=== PATIENT | female | born 1980 | race Caucasian/White ===

== ENCOUNTER 2016-11-20 07:27 | Day surgery (SDC) | payer BC ==
--- NOTE | 2016-11-12 16:38 | HP ---
PREOPERATIVE HISTORY AND PHYSICAL: DATE OF SURGERY/ADMISSION: 11/20/16 [facility] DATE OF OFFICE VISIT/ENCOUNTER: 11/12/16 ATTENDING SURGEON: Ernestina Camargo MD PROCEDURE: Left carpal tunnel release. CHIEF COMPLAINT: Numbness and tingling, left hand. 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 She complains of numbness in the left hand and pain. She rates the pain as 8/10, it has been very bothersome in the last few days. It wakes her up from sleep despite using a brace and trying to keep her wrist straight. She denies any injury to this wrist. She has not had any other treatment. She uses ibuprofen and/or meloxicam on an as needed basis and also recently was prescribed some hydrocodone for the pain by MARCELLA Soria. The patient denies neck pain. The pain does radiate up to her elbow at times, but her small finger does not go numb. She complains of weakness in her hand. She has consented to proceed with surgical intervention at this time after evaluation by Dr. Camargo. The patient is left-hand dominant. PAST MEDICAL HISTORY: 1. History of anemia. 2. Back pain. PAST SURGICAL HISTORY: 1. x2. 2. Right knee arthroscopy. CURRENT MEDICATIONS: 1. Cyclobenzaprine HCl p.r.n. back spasms. 2. Ibuprofen p.r.n. 3. Meloxicam p.r.n. ALLERGIES: No known drug allergies. FAMILY MEDICAL HISTORY: Noncontributory. 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 She is a smoker. She reports smoking approximately 5 cigarettes a day, first onset for the past 15 years. She denies recreational drug use and alcohol use. REVIEW OF SYSTEMS: General: Negative for fevers, chills, or night sweats. No known anesthesia problems. HEENT: Negative for headache, lightheadedness, or syncopal episodes. Integumentary: Negative for abrasions, lesions, or open wounds. Cardiothoracic: Negative for chest pain, palpitations, or edema. Negative for hypertension. Pulmonary: Negative for shortness of breath with exertion, chronic cough, or COPD. GI: Negative for nausea, vomiting, diarrhea , or constipation. No GERD. : Negative for nocturia, urinary frequency, urgency, history of UTIs, or kidney problems. Musculoskeletal: Positive for intermittent back pain and current complaint, otherwise negative. Neurological : Negative for history of seizure, stroke, or epilepsy. Endocrine: Negative for diabetes or thyroid issues. Hematological: Positive for history of anemia. Negative for easy bruising, excessive bleeding, or history of DVT. Infectious Disease: Negative for history of MRSA, hepatitis C, or HIV. PHYSICAL EXAMINATION GENERAL: A well-developed, well-nourished 35-year-old female, in no acute distress. VITALS SIGNS: Height 5 feet tall, weight 159 pounds, pulse rate 64, and blood pressure 122/78. HEENT: Normocephalic, atraumatic. Pupils are equal, round, and reactive to light and accommodation. Extraocular movements are intact. NECK: Supple. No palpable lymph nodes. Throat is clear. PULMONARY: Lungs are clear to auscultation bilaterally. No wheezes, rales, or rhonchi. CARDIOTHORACIC: Regular rate and rhythm. S1 and S2. No murmurs, rubs, or gallops. No edema. ABDOMEN: Positive bowel sounds, soft, and nontender. MUSCULOSKELETAL: On exam of the left upper extremity, her left hand shows a positive Tinel sign at the median nerve of the wrist. There is a positive median nerve compression test as well. No thenar wasting. Mild weakness with thumb abduction. No weakness with finger abduction. She has full flexion and extension of the fingers and normal motion at the wrist. Skin is intact. She has decreased sensation at the tips of the fingers of the median nerve distribution, but normal sensation to light touch in the small finger. NEUROLOGICAL: Alert and oriented x3. Cranial nerves II through XII are intact. Sensation is intact to light touch. ASSESSMENT: Left carpal tunnel syndrome. PLAN/RECOMMENDATIONS: The patient is scheduled to undergo a left carpal tunnel release with Dr. Camargo on 11/20/16. She will return to the office in 10 to 14 days postop for followup and suture removal. A prescription for Ultracet was e-scribed to the patient's pharmacy [place] [id number]/[facility] #: [id number] [address] HOSPITAL[facility]
[~2016-11-20 07:27] MED LIST: Buffered Lidocaine 1% SYR 3ML* 3 ML/SYR SYRINGE INTRADERM ONE
[2016-11-20] MEDS ORDERED: Lidocaine 1% INJ* 10 MG/ML 30 ML SDV ONE (07:57)
[2016-11-20] MEDS ORDERED: fentaNYL* 50 MCG/ML 2 ML VIAL (100 MCG VIAL) ONE (08:39)
[2016-11-20] MEDS ORDERED: Propofol* 10 MG/ML 20 ML BTL IV PUSH ONE (08:42)
[2016-11-20] MEDS ORDERED: Midazolam* 1 MG/ML 2 ML VIAL (2 MG) ONE (08:42)
[2016-11-20 09:07] VITALS: BP 118/91
--- NOTE | 2016-11-21 00:51 | OP ---
DATE OF OPERATION: 11/20/16 [facility] DATE OF : 84 SURGEON: Ernestina Camargo MD LABORATORY SPECIALIST: NELLY Sanchez ANESTHESIOLOGIST: Matthew Perla MD ANESTHESIA: Local MAC. PRE-OP DIAGNOSIS: Left carpal tunnel syndrome. POST-OP DIAGNOSIS: Left carpal tunnel syndrome. OPERATIVE PROCEDURE: Left carpal tunnel release. ESTIMATED BLOOD LOSS: Zero. TOURNIQUET TIME: 5 minutes. INDICATIONS: Tin is a 35-year-old female with numbness and tingling in the median nerve distribution of her left hand. She presents for left carpal tunnel release. DESCRIPTION OF PROCEDURE: The patient was brought to the operating room and was given a sedation anesthetic and a local infiltration of 10 cc of 1% plain lidocaine in the palm of left hand. The skin of the left hand and forearm was prepped and draped in the usual sterile fashion. The hand and forearm were exsanguinated and the tourniquet elevated to 250 mmHg. A longitudinal incision was made in the palm in line with the ring finger dissected through the subcutaneous tissue down to the transverse carpal ligament. The ligament was divided sharply with the knife and then more proximally with the scissors. The nerve was dissected free from surrounding tissue and there was an area of moderate compression at the mid portion of the ligament. The wound was irrigated and the skin edges were reapproximated with 4-0 nylon suture. The wound was dressed with Xeroform, 4x4 Webril and an Hong wrap. The patient tolerated the procedure well and was brought to the recovery room in good condition. [id number]/[facility] #: [id number] [facility]ITAL[facility]
== END 2016-11-20 09:28 | disposition home or self-care (01) ==
LOC: OREAST 07:27
PROVIDERS: ATTEND Orthopaedic Surgery
DX: G56.02 Carpal tunnel syndrome, left upper limb (principal); F17.210 Nicotine dependence, cigarettes, uncomplicated
CPT/HCPCS: J2250; J2704; J3010